=== PATIENT | male | born 1965 | race Hispanic/Latino ===

== ENCOUNTER → 2017-11-12 | Day surgery (SDC) | payer BC ==
[~2017-11-12] MED LIST: CEFAZOLIN SOD 1 GM VIAL ONE; DEXAMETHASONE SOD PHOS INJ 4 MG/ML VIAL ONE; FENTANYL CITRATE/PF 100MCG/2 ML INJ ONE; GLUCOSAMINE1000 MG PO; LIDOCAINE HCL 2% LOCAL INJ 5 ML SDV VIAL INJ ONE; MEN'S MULTI-VI1 EACH PO; MIDAZOLAM HCL 2 MG/2 ML VIAL ONE; ONDANSETRON HCL INJ 2 MG/ML VIAL ONE; POTASSIUM CHLO10 ME1 PO; PROPOFOL IV EMULSION 10 MG/ML 20 ML VIAL ONE; SEVOFLURANE INHAL SOLN 250 ML PEN BTL ONE
--- NOTE | 2017-11-12 08:25 | Operative Report ---
DATE OF PROCEDURE: November 12, 2017 BIOINFORMATICIST: Osmany Dorsey PA-C The patient was brought to the operating room for induction of anesthesia. Throughout this case, my PA's assistance was necessary for retraction of soft tissue and positioning of the extremity. This allows for efficient and technically successful execution of the operation and is considered medically necessary. PREOPERATIVE DIAGNOSIS: Left knee lateral meniscal tear. POSTOPERATIVE DIAGNOSES 1. Left knee lateral meniscal tear. 2. Grade-2 chondromalacia of the trochlear groove. PROCEDURES 1. Left knee arthroscopy. 2. Partial lateral meniscectomy. INDICATIONS: The patient is a 52-year-old gentleman who has clinic signs and symptoms consistent with a lateral meniscal tear in his left knee. He has failed conservative management and would like to proceed with arthroscopic intervention. The risks and benefits of the procedure were explained. He states he understands and wishes to proceed. DESCRIPTION OF PROCEDURE: The patient was brought to the operating room and placed under general anesthetic. His left lower extremity was prepped and draped in a sterile manner. A preoperative time out was performed. The extremity had been exsanguinated, and a proximal tourniquet was inflated to 300 mmHg. Standard arthroscopy portals were established. The knee was insufflated with sterile saline and systematically inspected. The suprapatellar pouch was unremarkable. The undersurface of the patella was without signs of wear. There was a 1 cm x 1 cm area of the lower trochlear groove that had grade-2 chondromalacia. The edges were stable. We did not address this. The medial compartment was inspected and was well preserved. The meniscus was probed on both surfaces and showed no evidence of a tear. The articular surfaces were well preserved. The cruciate ligaments were intact and stable. The lateral meniscus indeed showed a complex tear. This was debrided using a combination of biting forceps and a mechanical shaver. This was contoured down to a hook stable rim. Before and after photographs were taken. The articular surfaces were well preserved. The medial and lateral gutters were free of loose bodies. The knee was thoroughly irrigated. The arthroscopic instruments were removed. The portal incisions were closed with nylon stitches. A sterile bandage was applied. He was extubated and transported to the recovery room in stable condition. There was no blood loss, and all needle and sponge counts were correct. Job#: [id number]
== END | disposition home or self-care (01) ==
LOC: OR 05:03
PROVIDERS: ATTEND Specialist
DX: S83.272A Complex tear of lateral meniscus, current injury, left knee, initial encounter (principal); M94.262 Chondromalacia, left knee; R42 Dizziness and giddiness; R05 Cough; E78.00 Pure hypercholesterolemia, unspecified; Z88.6 Allergy status to analgesic agent; Z01.810 Encounter for preprocedural cardiovascular examination; Z68.35 Body mass index [BMI] 35.0-35.9, adult
CPT/HCPCS: 29881; 93005; J0690; J1100; J2001; J2250; J2405